=== PATIENT | female | born 1970 | race African-American/Black ===

== ENCOUNTER 2017-12-20 10:13 | Emergency (ER) | payer OTHER ==
[~2017-12-20] VITALS: Ht 162.6 cm; Wt 72.6 kg
[~2017-12-20 10:13] MED LIST: BACLOFEN20 M1 PO; IBUPROFEN800 M1 PO; LORAZEPAM1 M1 PO
[2017-12-20 10:31] VITALS: BP 115/79
== END 2017-12-20 10:58 | disposition admitted as inpatient to this hospital (09) ==
LOC: ERH 10:13
DX: M79.652 Pain in left thigh (principal)